=== PATIENT | female | born 1950 | race Caucasian/White ===

== ENCOUNTER 2016-05-27 12:41 | Inpatient (IN) | END 2016-06-05 17:00 | disposition home or self-care (01) | DRG 814 | DX: D68.62 Lupus anticoagulant syndrome (principal); J18.9 Pneumonia, unspecified organism; N17.9 Acute kidney failure, unspecified; E03.9 Hypothyroidism, unspecified; G40.909 Epilepsy, unspecified, not intractable, without status epilepticus; R62.59 Other lack of expected normal physiological development in childhood; F79 Unspecified intellectual disabilities; I10 Essential (primary) hypertension; J45.909 Unspecified asthma, uncomplicated; E78.5 Hyperlipidemia, unspecified; R91.8 Other nonspecific abnormal finding of lung field; Z88.0 Allergy status to penicillin; Z88.2 Allergy status to sulfonamides; Z90.710 Acquired absence of both cervix and uterus ==